=== PATIENT | male | born 1990 | race Caucasian/White ===

== ENCOUNTER 2019-11-22 18:52 | Emergency (ER) | payer BC ==
[~2019-11-22] VITALS: Ht 182.9 cm; Wt 113.4 kg
[2019-11-22 19:16] VITALS: BP 133/87
[2019-11-22] MEDS ORDERED: AMBIEN 10 MG TA10 MG PO (19:18)
--- NOTE | 2019-11-23 09:22 | EKG ---
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
== END 2019-11-22 19:55 | disposition left against medical advice (07) ==
LOC: M.ERS 18:52
DX: Z53.21 Procedure and treatment not carried out due to patient leaving prior to being seen by health care provider (principal)

== ENCOUNTER 2019-11-26 18:12 | Emergency (ER) | payer BC ==
[~2019-11-26] VITALS: Ht 182.9 cm; Wt 113.4 kg
[~2019-11-26 18:12] MED LIST: AMBIEN 10 MG TA10 MG PO
[2019-11-26 19:22] VITALS: BP 130/97
== END 2019-11-26 19:24 | disposition home or self-care (01) ==
LOC: M.ERS 18:12
DX: M25.522 Pain in left elbow (principal); R20.0 Anesthesia of skin

== ENCOUNTER 2020-10-03 19:14 | Emergency (ER) | payer BC ==
[~2020-10-03] VITALS: Ht 182.9 cm; Wt 92.5 kg
[2020-10-03] MEDS ORDERED: AMBIEN 10 MG TA10 MG PO (19:20)
[2020-10-03] MEDS ORDERED: ADDERALL 30 MG30 MG PO (19:20)
[2020-10-03 19:50] LABS: ABSOLUTE EOSINOPHILS 0.1 thou/uL (0.0-0.7); ABSOLUTE MONOCYTES 0.5 thou/uL (0.0-1.2); ABSOLUTE NEUTROPHILS 5.9 thou/uL (1.6-8.1); BASOPHILS 0.5 %; EOSINOPHILS 1.6 %; HEMOGLOBIN 15.2 gm/dL (14.0-18.0); LYMPHOCYTES 23.8 %; MCH 30.6 pg (26.0-34.0); MCHC 33.8 g/dL (28.0-37.0); MCV 90.7 fL (80.0-100.0); MONOCYTES 5.6 %; MPV 7.9 fl. (7.2-11.1); NUCLEATED RBCS 0 /100WBC; PLATELET COUNT* 285 thou/uL (150-400); POLYS 68.5 %; RBC 4.96 mil/uL (4.50-6.00); RDW-CV 12.9 % (10.5-14.5); WBC 8.6 thou/uL (4.0-11.0)
[2020-10-03 19:58] LABS: CALCIUM 8.7 mg/dL (8.5-10.1); CREATININE 1.3 mg/dL (0.6-1.3); POTASSIUM 3.2 mmol/L (3.5-5.1)
[2020-10-03 20:02] LABS: APTT 27.3 Seconds (25.0-31.3); PROTIME 11.1 Seconds (9.20-11.50)
[2020-10-03 20:03] LABS: TOTAL BILIRUBIN 0.6 mg/dL (<0.1-1.0); TOTAL PROTEIN 8.1 g/dL (6.4-8.2)
[2020-10-03 23:08] VITALS: BP 119/81
--- NOTE | 2020-10-04 18:00 | EKG ---
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: : 1990 Requested By: Gricel Hdz Order Number: [id number] MD: Gabriel Soto Measurements Intervals [place] Rate: 106 P: 56 [place]: 167 QRS: 55 QRSD: 88 T: 6 QT: 337 QTc: 448 Interpretive Statements Sinus tachycardia Inferior Q waves Borderline T abnormalities, anterior leads Compared to ECG 11/22/2019 19:12:50 Inferior Q waves now present Q waves now present T-wave abnormality now present Sinus rhythm no longer present Electronically Signed On 10-04-2020 18:00:19 [employer] by Gabriel Soto [email or web address] <ELECTRONICALLY SIGNED> By: Gabriel Soto MD, FACC 10/04/20 1800 14 14 Gabriel Soto MD, FACC /EPI
== END 2020-10-03 23:09 | disposition left against medical advice (07) ==
LOC: M.ERS 19:14
PROVIDERS: Personal Emergency Response Attendant
DX: I49.9 Cardiac arrhythmia, unspecified (principal); R07.89 Other chest pain; F17.220 Nicotine dependence, chewing tobacco, uncomplicated